=== PATIENT | female | born 2000 | race Caucasian/White ===

== ENCOUNTER 2019-08-31 11:28 | Emergency (ER) | payer BC ==
[~2019-08-31] VITALS: Ht 157.5 cm; Wt 53.6 kg
[2019-08-31 11:38] VITALS: BP 109/73; PULSE 98; TEMP 98.4
== END 2019-08-31 13:05 | disposition home or self-care (01) ==
LOC: COL.ER 11:28
DX: S06.0X0A Concussion without loss of consciousness, initial encounter (principal); R40.2412 Glasgow coma scale score 13-15, at arrival to emergency department; F90.9 Attention-deficit hyperactivity disorder, unspecified type; W22.8XXA Striking against or struck by other objects, initial encounter